=== PATIENT | male | born 1980 ===

== ENCOUNTER 2019-05-03 15:08 | Outpatient (CLI) | payer BC ==
--- NOTE | 2019-05-03 16:32 | Diagnostic Imaging Report ---
Indication: Pain, Abnormal lipase and amylase Technique: Bowen-scale and duplex images of the upper abdomen were obtained Comparison: none Findings: Gallbladder is unremarkable, without stones, wall thickening, nor pericholecystic fluid. Sonographic Ayala's sign is negative. Common bile duct measures for mm in diameter. No intrahepatic biliary ductal dilatation. Liver demonstrates borderline increased echogenicity, no focal abnormality. Portal vein and hepatic veins are patent. Pancreas is unremarkable. The spleen is borderline enlarged, measuring 13.2 cm long axis dimension. Left kidney measures 12 point cm in length. Right kidney measures 11.3 cm length. Both kidneys demonstrate normal echogenicity. There is no hydronephrosis. No focal abnormality . Non-aneurysmal abdominal aorta . Impression: Liver demonstrates borderline increased echogenicity, consistent with diffuse hepatocellular disease, most likely fatty change. Borderline splenomegaly Negative for gallstones or dilated bile ducts
== END 2019-05-03 17:08 | disposition home or self-care (01) ==
LOC: ULS 15:08
DX: R10.9 Unspecified abdominal pain (principal); R16.1 Splenomegaly, not elsewhere classified
CPT/HCPCS: 76700